=== PATIENT | female | born 1960 | race Hispanic/Latino ===

== ENCOUNTER 2019-07-08 19:59 | Emergency (ER) | payer OTHER ==
[2019-07-08 20:24] LABS: APPEARANCE,URINE Clear (CLEAR); BILIRUBIN,URINE Negative (NEGATIVE); COLOR,URINE Yellow (YELLOW); GLUCOSE, URINE (UA) Negative (NEGATIVE); KETONES,URINE Negative (NEGATIVE); LEUKOCYTE ESTERASE ,URINE Trace (NEGATIVE); NITRATE,URINE Negative (NEGATIVE); OCCULT BLOOD,URINE Negative (NEGATIVE); PH,URINE 8.5 (5.0-8.0); PROTEIN,URINE Negative (NEGATIVE); UROBILINOGEN,URINE 0.2 mg/dL (0.2-1.0)
[2019-07-08] MEDS ORDERED: SODIUM CHLORIDE 0.9% 1000ML 1,000 ML IV ONE (20:31)
[2019-07-08] MEDS ORDERED: ONDANSETRON HCL 4 MG/2 ML VIAL ONE (20:31)
[2019-07-08] MEDS ORDERED: KETOROLAC TROMETHAMINE 30MG/ML ONE (20:31)
[2019-07-08 20:35] LABS: BASOPHILS % (AUTO) 0.4 % (0.0-5.0); EOSINOPHILS % (AUTO) 0.4 % (0.0-8.0); HEMATOCRIT 39.8 % (36-48); LYMPHOCYTES % (AUTO) 16.1 % (21.0-51.0); MEAN CORPUSCULAR HGB CONC 33.8 g/dL (32.0-36.0); MEAN CORPUSCULAR VOLUME 88.8 fL (79-99); MONOCYTES % (AUTO) 7.9 % (3.0-13.0); NEUTROPHILS % (AUTO) 75.2 % (40.0-77.0); PLATELET COUNT (AUTO) 277 K/uL (130-400); RED BLOOD CELL COUNT(AUTO) 4.49 MIL/uL (4.00-5.50); RED CELL DISTRIBUTION WIDTH 13.5 % (11.0-15.5); WHITE BLOOD COUNT (AUTO) 11.4 K/uL (4.8-10.8)
[2019-07-08 20:38] LABS: BACTERIA,URINE Few /HPF (None Seen)
[2019-07-08 20:39] LABS: MUCUS,URINE None Seen LPF (None Seen); SQUAMOUS EPITHELIAL CELL,UR 0-2 /HPF (0-2)
[2019-07-08 20:45] LABS: CREATININE 0.6 mg/dL (0.5-1.5); POTASSIUM 3.3 mmol/L (3.5-5.1)
[2019-07-08 20:50] LABS: ALBUMIN 3.7 g/dL (3.5-5.0); BILIRUBIN,TOTAL 0.6 mg/dL (0.2-1.0); TOTAL PROTEIN, SERUM 7.6 g/dL (6.0-8.3)
[2019-07-08] MEDS ORDERED: CEFTRIAXONE SODIUM 1 GM ONE (21:25)
[2019-07-08] MEDS ORDERED: DIATR MEGLU/DIATRIZOATE SODIUM 30 ML BOTTLE ONE ×2 (21:37→21:38)
[2019-07-09] MEDS ORDERED: IOHEXOL-350 75 ML VIAL IV ONE (00:09)
== END 2019-07-09 01:17 | disposition home or self-care (01) ==
LOC: EDH 19:59
DX: K57.32 Diverticulitis of large intestine without perforation or abscess without bleeding (principal); I10 Essential (primary) hypertension; E78.5 Hyperlipidemia, unspecified
CPT/HCPCS: 36415; 74176; 74177; 80053; 81001; 83690; 85025; 93005; 96374; 96375; 99285; J0696; J1885; J2405; J7030; Q9963; Q9967

== ENCOUNTER 2022-03-21 15:32 | Emergency (ER) | payer OTHER, SELFPAY ==
[~2022-03-21] VITALS: Ht 152.4 cm; Wt 59.0 kg
[2022-03-21 15:59] LABS: BASOPHILS % (AUTO) 0.7 % (0.0-5.0); EOSINOPHILS % (AUTO) 4.6 % (0.0-8.0); LYMPHOCYTES % (AUTO) 35.5 % (21.0-51.0); MEAN CORPUSCULAR HEMOGLOBIN 30.3 pg (27.0-33.0); MONOCYTES % (AUTO) 9.9 % (3.0-13.0); NEUTROPHILS % (AUTO) 49.1 % (40.0-77.0); PLATELET COUNT (AUTO) 175 K/uL (130-400); RED BLOOD CELL COUNT(AUTO) 4.72 MIL/uL (4.00-5.50); RED CELL DISTRIBUTION WIDTH 13.4 % (11.0-15.5); WHITE BLOOD COUNT (AUTO) 4.1 K/uL (4.8-10.8)
[2022-03-21 16:09] LABS: CREATININE 0.5 mg/dL (0.5-1.5); POTASSIUM 3.3 mmol/L (3.5-5.1)
[2022-03-21 16:16] LABS: BILIRUBIN,TOTAL 0.4 mg/dL (0.2-1.0); TOTAL PROTEIN, SERUM 7.5 g/dL (6.0-8.3)
[2022-03-21] MEDS ORDERED: LABETALOL 20MG SYG IV ONE (17:03)
[2022-03-21] MEDS ORDERED: CLONIDINE HCL 0.1 MG TABLET ONE (17:29)
[2022-03-21] MEDS ORDERED: POTASSIUM BICARB/CIT AC 25 MEQ TABLET.EFF PO ONE (17:30)
[2022-03-21] MEDS ORDERED: LABETALOL 20MG VIAL IV ONE (17:30)
[2022-03-21] MEDS ORDERED: CLON0.1T PO (17:35)
[2022-03-21 17:54] VITALS: BP 165/86
== END 2022-03-21 17:54 | disposition home or self-care (01) ==
LOC: EDH 15:32
DX: E87.6 Hypokalemia (principal); I10 Essential (primary) hypertension; E78.00 Pure hypercholesterolemia, unspecified; M19.90 Unspecified osteoarthritis, unspecified site
CPT/HCPCS: 36415; 70450; 80053; 84484; 85025; 93005; 96374

== ENCOUNTER 2022-11-13 16:10 | Emergency (ER) | payer OTHER, SELFPAY ==
[~2022-11-13] VITALS: Ht 152.4 cm; Wt 61.7 kg
[~2022-11-13 16:10] MED LIST: CLON0.1T PO
[2022-11-13] MEDS ORDERED: LABETALOL 20MG VIAL IV ONE (17:00)
[2022-11-13] MEDS ORDERED: KETOROLAC 15MG/ML VIAL (15MG/ML) IV ONE (17:00)
[2022-11-13 17:16] LABS: BASOPHILS % (AUTO) 0.8 % (0.0-5.0); EOSINOPHILS % (AUTO) 3.9 % (0.0-8.0); HEMATOCRIT 44.1 % (36-48); LYMPHOCYTES % (AUTO) 33.6 % (21.0-51.0); MEAN CORPUSCULAR HEMOGLOBIN 30.4 pg (27.0-33.0); MEAN CORPUSCULAR HGB CONC 33.6 g/dL (32.0-36.0); MEAN CORPUSCULAR VOLUME 90.6 fL (79-99); MONOCYTES % (AUTO) 7.3 % (3.0-13.0); NEUTROPHILS % (AUTO) 54.4 % (40.0-77.0); PLATELET COUNT (AUTO) 222 K/uL (130-400); RED BLOOD CELL COUNT(AUTO) 4.87 MIL/uL (4.00-5.50); WHITE BLOOD COUNT (AUTO) 4.9 K/uL (4.8-10.8)
[2022-11-13 17:22] LABS: CREATININE 0.6 mg/dL (0.5-1.5); POTASSIUM 3.3 mmol/L (3.5-5.1)
[2022-11-13 17:27] LABS: ALBUMIN 4.2 g/dL (3.5-5.0); TOTAL PROTEIN, SERUM 8.1 g/dL (6.0-8.3)
[2022-11-13 17:36] LABS: APPEARANCE,URINE CLOUDY (CLEAR); BILIRUBIN,URINE NEGATIVE (NEGATIVE); COLOR,URINE LIGHT-YELLOW (YELLOW); GLUCOSE, URINE (UA) NEGATIVE (NEGATIVE); KETONES,URINE 10 mg/dL (NEGATIVE); LEUKOCYTE ESTERASE ,URINE NEGATIVE Leu/uL (NEGATIVE); NITRATE,URINE NEGATIVE (NEGATIVE); PH,URINE 7.5 (5.0-8.0); PROTEIN,URINE NEGATIVE (NEGATIVE); UROBILINOGEN,URINE 0.2 mg/dL (0.2-1.0)
[2022-11-13 17:42] LABS: BACTERIA,URINE FEW /HPF (None Seen); MUCUS,URINE RARE LPF (None Seen); SQUAMOUS EPITHELIAL CELL,UR RARE /HPF (0-2)
[2022-11-13] MEDS ORDERED: CLON0.2T PO (17:53)
[2022-11-13] MEDS ORDERED: CLONIDINE HCL 0.2 MG TABLET PO ONE (18:00)
[2022-11-13 19:01] VITALS: BP 168/83
== END 2022-11-13 19:08 | disposition home or self-care (01) ==
LOC: EDH 16:10
DX: I10 Essential (primary) hypertension (principal); R51.9 Headache, unspecified; E78.00 Pure hypercholesterolemia, unspecified; Z90.710 Acquired absence of both cervix and uterus; Z79.899 Other long term (current) drug therapy; Z88.8 Allergy status to other drugs, medicaments and biological substances; Z20.822 Contact with and (suspected) exposure to COVID-19
CPT/HCPCS: 99285; 96374; 87635; 96375; 80053; 85025; 87804 ×2; 81001; 36415; C9803; J3490; J1885

== ENCOUNTER 2023-12-22 09:44 | Emergency (ER) | payer OTHER, SELFPAY ==
[~2023-12-22] VITALS: Ht 152.4 cm; Wt 64.0 kg
[~2023-12-22 09:44] MED LIST changes: +CLON0.2T PO
[2023-12-22 10:28] LABS: ADD UA MICROSCOPIC YES; APPEARANCE,URINE CLEAR (CLEAR); BILIRUBIN,URINE NEGATIVE (NEGATIVE); COLOR,URINE LIGHT-YELLOW (YELLOW); GLUCOSE, URINE (UA) NEGATIVE (NEGATIVE); KETONES,URINE NEGATIVE (NEGATIVE); LEUKOCYTE ESTERASE ,URINE NEGATIVE Leu/uL (NEGATIVE); NITRATE,URINE NEGATIVE (NEGATIVE); PROTEIN,URINE NEGATIVE (NEGATIVE); UROBILINOGEN,URINE 0.2 mg/dL (0.2-1.0)
[2023-12-22 10:30] LABS: BASOPHILS # (AUTO) 0.04 K/uL (0.00-0.20); EOSINOPHILS # (AUTO) 0.17 K/uL (0.00-0.70); EOSINOPHILS % (AUTO) 4.1 % (0.0-8.0); HEMATOCRIT 41.1 % (36-48); LYMPHOCYTES # (AUTO) 1.8 K/uL (1.0-4.8); MEAN CORPUSCULAR HEMOGLOBIN 29.7 pg (27.0-33.0); MEAN CORPUSCULAR HGB CONC 34.1 g/dL (32.0-36.0); MEAN CORPUSCULAR VOLUME 87.3 fL (79-99); MONOCYTES # (AUTO) 0.4 K/uL (0.1-1.0); MONOCYTES % (AUTO) 8.4 % (3.0-13.0); NEUTROPHILS # (AUTO) 1.9 K/uL (1.8-7.7); NEUTROPHILS % (AUTO) 44.5 % (40.0-77.0); PLATELET COUNT (AUTO) 244 K/uL (130-400); RED BLOOD CELL COUNT(AUTO) 4.71 MIL/uL (4.00-5.50); RED CELL DISTRIBUTION WIDTH 13.6 % (11.0-15.5); WHITE BLOOD COUNT (AUTO) 4.2 K/uL (4.8-10.8)
[2023-12-22 10:32] LABS: BACTERIA,URINE RARE /HPF (None Seen); RBC,URINE 0-1 /HPF (0-1); WBC,URINE 0-1 /HPF (0-1)
[2023-12-22 10:34] LABS: ALBUMIN 3.5 g/dL (3.5-5.0); BILIRUBIN,TOTAL 0.4 mg/dL (0.2-1.0); CREATININE 0.5 mg/dL (0.5-1.5); MAGNESIUM 2.3 mg/dL (1.80-2.40); POTASSIUM 3.1 mmol/L (3.5-5.1); TOTAL PROTEIN, SERUM 7.9 g/dL (6.0-8.3)
[2023-12-22 10:49] LABS: INR <= 0.93 (0.85-1.15); PROTHROMBIN TIME 9.8 SEC (9.6-11.6)
[2023-12-22 10:50] LABS: PARTIAL THROMBOPLASTIN TIME 28.1 SEC (26.3-35.5)
[2023-12-22 11:02] LABS: B-TYPE NATRIURETIC PEPTIDE 21 pg/mL (0-100)
[2023-12-22] MEDS: KCL 20 MEQ ERTAB PO ONE (11:16)
[2023-12-22] MEDS: CLONIDINE HCL 0.2 MG TABLET PO ONE (12:20)
[2023-12-22 13:39] VITALS: BP 164/92; PULSE 81; RESP 18; O2SAT 96
== END 2023-12-22 13:50 | disposition home or self-care (01) ==
LOC: EDH 09:44
DX: R07.89 Other chest pain (principal); I10 Essential (primary) hypertension; E78.00 Pure hypercholesterolemia, unspecified; M19.90 Unspecified osteoarthritis, unspecified site; E87.5 Hyperkalemia; Z79.899 Other long term (current) drug therapy; Z98.890 Other specified postprocedural states; Z90.710 Acquired absence of both cervix and uterus; Z88.8 Allergy status to other drugs, medicaments and biological substances
CPT/HCPCS: 36415; 71045; 80053; 81001; 82550; 83735; 83880; 84484; 85025; 85610; 85730; 93005

== ENCOUNTER 2024-05-05 18:36 | Emergency (ER) | payer OTHER ==
[~2024-05-05] VITALS: Ht 152.4 cm; Wt 63.5 kg
[2024-05-05] MEDS: ACETAMINOPHEN 500 MG TABLET PO ONE (20:29)
[2024-05-05 21:52] VITALS: BP 154/92; PULSE 82; RESP 16; O2SAT 96
== END 2024-05-05 21:54 | disposition home or self-care (01) ==
LOC: EDH 18:36
DX: G44.309 Post-traumatic headache, unspecified, not intractable (principal); I10 Essential (primary) hypertension; E78.00 Pure hypercholesterolemia, unspecified; M19.90 Unspecified osteoarthritis, unspecified site; Z88.8 Allergy status to other drugs, medicaments and biological substances; Z90.710 Acquired absence of both cervix and uterus; V49.88XA Car occupant (driver) (passenger) injured in other specified transport accidents, initial encounter; Y93.19 Activity, other involving water and watercraft; Y92.488 Other paved roadways as the place of occurrence of the external cause; Y99.8 Other external cause status
CPT/HCPCS: 70450

== ENCOUNTER → 2024-10-03 | Outpatient (CLI) | payer OTHER ==
[~2024-10-03] MED LIST changes: +AMOX1TAB16 PO; +POLY510P31 PO
[2024-10-03 15:35] LABS: CREATININE 0.5 mg/dL (0.5-1.0)
== END | disposition home or self-care (01) ==
LOC: LAB 14:08
PROVIDERS: ATTEND Internal Medicine
DX: E22.0 Acromegaly and pituitary gigantism (principal)
CPT/HCPCS: 36415; 82565; 84520

== ENCOUNTER → 2024-10-13 | Outpatient (CLI) | payer OTHER ==
[~2024-10-13] MED LIST changes: +GADOTERATE MEGLUMINE 10 MMOL/20 ML VIAL IV ONE
--- NOTE | 2024-10-13 11:06 | HMCIMG ---
MR PITUITARY WWO (BRAIN WWO) HISTORY: Pituitary mass follow-up COMPARISON: None TECHNIQUE: MRI of the brain was performed utilizing multiple pulse sequences in axial, coronal and sagittal planes. Patient was not given contrast through intravenous route. Additional high-resolution images of sella were obtained. FINDINGS: The ventricles and extraventricular CSF spaces are dilated consistent with cerebral atrophy. Nonspecific white matter changes are seen. There is no midline shift, mass effect or herniation. No subacute hemorrhage is seen. No MR evidence of acute infarct is seen in the diffusion weighted images. Cerebellar tonsils are in normal position. No evidence of mucoperiosteal thickening is seen of the visualized paranasal sinuses. 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 There is thickening of the infundibulum. There may be minimal encroachment of the optic chiasm. IMPRESSION: 1. No MR evidence of acute infarct is seen in the diffusion weighted images. There is intrasellar mass with suprasellar extension most consistent with improved from a proper clinical setting. There is no previous study available for comparison purposes.
== END | disposition home or self-care (01) ==
LOC: RAH 07:16
PROVIDERS: ATTEND Internal Medicine
DX: E22.0 Acromegaly and pituitary gigantism (principal); I67.89 Other cerebrovascular disease
CPT/HCPCS: 70553; A9575